=== PATIENT | male | born 1990 | race Caucasian/White ===

== ENCOUNTER 2016-06-08 21:03 | Emergency (ER) | payer SELFPAY ==
[~2016-06-08] VITALS: Ht 160 cm; Wt 59.0 kg
[2016-06-08 21:04] VITALS: Ht 160 cm; Wt 59.0 kg
[2016-06-08] MEDS ORDERED: IBUP-1542 PO (21:48)
--- NOTE | 2016-07-08 13:32 | ERA ---
ER Documentation Chief Complaint Date/Time DATE: 07/08/16 TIME: 13:22 Chief Complaint chest pain x 3 days HPI 26-year-old male complaining of heart palpitations. Patient has been undergoing more stress but denies changes in diet or lifestyle. Also complains of chest pain over the past 3 days. Denies any history of psychological disorders. Denies shortness of breath, claudication, extremity swelling, headache, swelling, or drug/alcohol use/abuse. Patient denies headache. Patient's chest pain is worse with deep inspiration. There are no alleviating factors. Patient has not taken any medications at this time to improve the symptoms. Patient has no family history of any cardiac disease. ROS All systems reviewed and are negative except as per history of present illness. Medications Home Meds Active Scripts Ibuprofen* (Motrin*) 600 Mg Tab, 600 MG PO Q6H Y for PAIN AND OR ELEVATED TEMP, #30 TAB Prov:YOBANY DENNIS PA-C 06/08/16 Allergies Allergies: Coded Allergies: No Known Drug Allergies (Verified Allergy, Unknown, 06/08/16) PMhx/Soc Medical and Surgical Hx: pt denies Surgical Hx Hx Cardiac Disorders: Yes (palpitations "all my life") Hx Alcohol Use: No Hx Substance Use: No Hx Tobacco Use: No Physical Exam Physical Exam Const: Well-appearing 26-year-old male. Head: Atraumatic Eyes: Normal Conjunctiva ENT: Normal External Ears, Nose and Mouth. Neck: Full range of motion..~ No meningismus. Resp: Clear to auscultation bilaterally. Mild tenderness palpation on anterior lateral sides of thorax. Cardio: Regular rate and rhythm, no murmurs Abd: Soft, non tender, non distended. Normal bowel sounds Skin: No petechiae or rashes Back: No midline or flank tenderness Ext: No cyanosis, or edema Neur: Awake and alert Psych: Normal Mood and Affect Procedures/MDM Patient is a 26-year-old male who presents with atypical CP. Patient also complains of palpitations. Patient seems anxious. Chest pain features include : Pleuritic pain, sharp pain related to respiratory movements. Pain is not related to exertion. At this time I have very low suspicion for myocardial ischemia or anatomical pulmonary pathology. We will go ahead and discharge patient with return precautions. Have recommended that the patient follow-up with his primary care provider in the next 1-3 days. Due to the chief complaint I presented the case to my attending Dr. dasilva who agrees with my assessment and plan patient's vitals are stable and and will not be discharged. Departure Diagnosis: Primary Impression: Chest pain Qualified Code: R07.82 - Intercostal pain Additional Impression: Atypical chest pain Condition: Stable Patient Instructions: Chest Pain, Uncertain Cause Referrals: TONYA CEDENO MD,AMY BAIRES MD,BIANCA YUSUF,KEVIN MOJICA,ADAM KELLER,LOGAN NÚÑEZ,GINO PENA,CHESTER EVANS,SHALINI FERNANDEZ,MARGY POLLARD,QUINTON ELLIS,JORDAN SHELTON MD Additional Instructions: Patient follow-up with his primary care provider in the next 1-3 days. Return to the emergency department if new or worsening symptoms develop. YOBANY DENNIS PA-C Jul 08, 2016 13:32
== END 2016-06-08 22:01 | disposition home or self-care (01) ==
LOC: FTE 21:03
DX: R07.82 Intercostal pain (principal); R07.89 Other chest pain
CPT/HCPCS: 99283